=== PATIENT | male | born 1970 | race Hispanic/Latino ===

== ENCOUNTER 2024-11-20 21:52 | Emergency (ER) | payer SELFPAY ==
[~2024-11-20] VITALS: Ht 180.3 cm; Wt 101.2 kg
[~2024-11-20 21:52] MED LIST: LEVO500T2 PO; NAPR375T PO; PANT40SU PO
--- NOTE | 2024-11-20 21:56 | NUR ---
TRIAGE DELAYED. PT IN RESTROOM
--- NOTE | 2024-11-20 23:54 | NUR ---
REQUESTING BED FOR DUE TO HEADACHE, EXPLAINED ONCE ONE BECOMES AVAILABLE I WILL, PT VERBALIZED UNDERSTANDING
[2024-11-21 01:01] LABS: BASOPHILS # (AUTO) 0.05 K/uL (0.00-0.20); BASOPHILS % (AUTO) 0.6 % (0.0-5.0); EOSINOPHILS % (AUTO) 2.2 % (0.0-8.0); HEMATOCRIT 49.9 % (42-54); IMMATURE GRANULOCYTE ABSOLUTE 0.04 K/uL (0-1); LYMPHOCYTES # (AUTO) 3.1 K/uL (1.0-4.8); LYMPHOCYTES % (AUTO) 34.1 % (21.0-51.0); MEAN CORPUSCULAR HEMOGLOBIN 27.9 pg (27.0-33.0); MEAN CORPUSCULAR HGB CONC 34.7 g/dL (32.0-36.0); MEAN CORPUSCULAR VOLUME 80.6 fL (79-99); MONOCYTES # (AUTO) 0.7 K/uL (0.1-1.0); MONOCYTES % (AUTO) 7.4 % (3.0-13.0); NEUTROPHILS % (AUTO) 55.3 % (40.0-77.0); PLATELET COUNT (AUTO) 182 K/uL (130-400); RED BLOOD CELL COUNT(AUTO) 6.19 MIL/uL (4.50-6.20); RED CELL DISTRIBUTION WIDTH 13.6 % (11.0-15.5)
[2024-11-21 01:10] LABS: CREATININE 0.9 mg/dL (0.5-1.3); POTASSIUM 3.2 mmol/L (3.5-5.1)
[2024-11-21 01:15] LABS: ALBUMIN 3.9 g/dL (3.5-5.0); BILIRUBIN,TOTAL 1.1 mg/dL (0.2-1.0); TOTAL PROTEIN, SERUM 7.7 g/dL (6.0-8.3)
--- NOTE | 2024-11-21 01:41 | HMCIMG ---
CT HEAD/BRAIN W/O CONTRAST HISTORY: Headaches COMPARISON: None TECHNIQUE: Multiple sequential axial images of the head were obtained from the base of the skull through vertex. Patient was not given contrast through intravenous route. FINDINGS: The ventricles and extraventricular CSF spaces are dilated consistent with cerebral atrophy. Nonspecific white matter changes seen. There is no midline shift, mass effect or herniation. No acute intracranial bleed is seen. Visualized portion of the paranasal sinuses are grossly within normal limits. IMPRESSION: 1. No acute intracranial bleed is seen. 2. Atrophy with white matter changes. CT was performed with one or more following dose reduction techniques: automated exposure control, adjustment of the mA and kv according to patient's size, or use of a iterative reconstruction technique.
[2024-11-21] MEDS: DiphenhydrAMINE HCL 50 MG/ML VIAL IV ONE (01:54)
[2024-11-21] MEDS: PROCHLORPERAZINE 10MG/2ML INJ IV ONE (01:54)
[2024-11-21] MEDS: ketOROlac 15MG/ML VIAL (15MG/ML) IV ONE (01:54)
[2024-11-21] MEDS ORDERED: KETO10TA2 PO (02:00)
--- NOTE | 2024-11-21 02:03 | ERN ---
General Chief Complaint: Headache Stated Complaint: NECK PAIN Time Seen by MD: 00:32 Time Seen by Midlevel: 00:32 Source: patient History of Present Illness Initial Comments The patient is a 54-year-old male presenting to the emergency department with a right-sided headache. The headache has been persistent for the last four days. He does report similar episodes in the past over the last couple of months but has never seen a doctor for this. Denies having a history of migraines. He does report some mild photophobia but denies any focal weakness, nausea, vomiting, blurred vision, double vision, or any other symptoms at this time. Allergies: Coded Allergies: No Known Drug Allergies (Unverified Allergy, Unknown, 06/26/15) Home Meds Active Scripts Pantoprazole Sodium (Protonix) 40 Mg Granpkt.dr, 40 MG PO DAILY, #7 PACK Prov:MAGO CROWELL MD 06/28/15 Naproxen (Naprosyn) 375 Mg Tablet, 375 MG PO BID PRN for PAIN LEVEL 6 TO 10, #10 TAB Prov:MAGO CROWELL MD 06/28/15 Levofloxacin (Levaquin) 500 Mg Tablet, 500 MG PO DAILY, #7 TAB Prov:MAGO CROWELL MD 06/28/15 Past Medical History Past Medical History: No Pertinent History Past Surgical History: None ROS Dictation CONSTITUTIONAL: Negative except for HPI HEAD/FACE: Negative except for HPI EENT: Negative except for HPI RESPIRATORY: Negative except for HPI GASTROINTESTINAL/ABDOMINAL: Negative except for HPI GENITOURINARY: Negative except for HPI MUSCULOSKELETAL: Negative except for HPI INTEGUMENTARY: Negative except for HPI NEUROLOGICAL/PSYCH: Negative except for HPI HEMATOLOGIC/LYMPHATIC: Negative except for HPI All Systems Negative, Except as noted above. 13 point review of systems assessed and all negative except for above. Physical Exam Physical Exam Dictation Vital Signs reviewed General Appearance: Alert, oriented x 3, no acute distress, well developed, nourished. Head and Face: non-traumatic. Eyes: PERRL, pink conjunctivas, eyelid no trauma, anterior chamber with arcus senilis. Ears: Pinnas intact and no signs of trauma or erythema ear canals clear and no discharge TM no erythema Nose: No discharge, no bleeding. Oropharynx: Mouth normal, tongue pink, pharynx clear,no erythema, tonsils no exudates, no abscesses noted, mucous membrane moist Neck: Supple, non-tender, no thyromegaly, no masses, no JVD, no bruits Breast:Deferred Chest:No tenderness, no crepitus, no paradoxical movement, no retractions Lungs:Clear, well-ventilated, symmetric, no rales, no wheezing, no rhonchi, no stridor, good breath sounds bilaterally Heart: Regular rate, regular rhythm, no murmur, no gallops Vascular: no peripheral edema, Abdomen: Soft, positive bowel sounds, nondistended, no guarding, nontender, no rebound, no masses no hepatomegaly, no splenomegaly, no Vazquez's sign, no hernias. Rectal: Deferred Genital: Deferred Neurological: Normal speech, motor function intact, sensory function intact Musculoskeletal: Neck nontender, full range of motion, back nontender, full range of motion, Extremities: nontender, full range of motion Skin: Color pink, dry, no turgor, no rash, no lacerations, no abrasions, no contusions. Lymphatic: Deferred Results Laboratory and Microbiology Lab and Micro Result Laboratory Tests Test 11/21/24 00:48 White Blood Count 9.0 K/uL (4.8-10.8) Red Blood Count 6.19 MIL/uL (4.50-6.20) Hemoglobin 17.3 g/dL (14.0-18.0) Hematocrit 49.9 % (42-54) Mean Corpuscular Volume 80.6 fL (79-99) Mean Corpuscular Hemoglobin 27.9 pg (27.0-33.0) Mean Corpuscular Hemoglobin Concent 34.7 g/dL (32.0-36.0) Red Cell Distribution Width 13.6 % (11.0-15.5) Platelet Count 182 K/uL (130-400) Mean Platelet Volume 11.2 fL (7.5-10.5) H Immature Granulocyte % (Auto) 0.4 % (0-1) Neutrophils (%) (Auto) 55.3 % (40.0-77.0) Lymphocytes (%) (Auto) 34.1 % (21.0-51.0) Monocytes (%) (Auto) 7.4 % (3.0-13.0) Eosinophils (%) (Auto) 2.2 % (0.0-8.0) Basophils (%) (Auto) 0.6 % (0.0-5.0) Neutrophils # (Auto) 5.0 K/uL (1.8-7.7) Lymphocytes # (Auto) 3.1 K/uL (1.0-4.8) Monocytes # (Auto) 0.7 K/uL (0.1-1.0) Eosinophils # (Auto) 0.20 K/uL (0.00-0.70) Basophils # (Auto) 0.05 K/uL (0.00-0.20) Absolute Immature Granulocyte (auto 0.04 K/uL (0-1) Nucleated Red Blood Cells 0.0 % (0.0-0.19) Sodium Level 137 mmol/L (136-145) Potassium Level 3.2 mmol/L (3.5-5.1) L Chloride Level 100 mmol/L (101-111) L Carbon Dioxide Level 28 mmol/L (21-32) Blood Urea Nitrogen 12 mg/dL (7-18) Creatinine 0.9 mg/dL (0.5-1.3) Glomerular Filtration Rate Calc 103 mL/min (>90) Random Glucose 174 mg/dL (70-105) H Total Calcium 8.7 mg/dL (8.5-10.1) Labs Reviewed?: Yes MDM MDM: Differential diagnosis: Intracranial bleed, migraine headache, cluster headache There are no social concerns with this patient. Prescription drug management Prescriptions will include: Toradol Medical management and examination interpretation discussions were had by me with other qualified healthcare professionals as indicated for the patient's care. ED Course Orders Procedure Category Date Status Time 12 Lead Ekg Tracing- EKG 11/21/24 Logged Technical 00:42 Cbc With Differential LAB 11/21/24 Complete 00:42 Comprehensive LAB 11/21/24 In Process Metabolic Panel 00:42 Vital Signs Date Time Temp Pulse Resp B/P (MAP) Pulse Ox O2 Delivery O2 Flow Rate FiO2 11/20/24 21:55 98.4 105 20 165/119 97 Room Air [address] [place] [id number] IMAGING REPORT Signed PATIENT: BLANCO VÁZQUEZ MR#: [id number] : 1970 SEX: M AGE: 54 LOCATION: [facility] ORDER 1 STATUS: REG ER REPORT#: [id number] SERVICE 0 REASON: right sided headache ORDERING PHYSICIAN: JOSSELYN SAL PROCEDURE: HEAD WO - CT HEAD/BRAIN W/O CONTRAST CT HEAD/BRAIN W/O CONTRAST HISTORY: Headaches COMPARISON: None TECHNIQUE: Multiple sequential axial images of the head were obtained from the base of the skull through vertex. Patient was not given contrast through intravenous route. FINDINGS: The ventricles and extraventricular CSF spaces are dilated consistent with cerebral atrophy. Nonspecific white matter changes seen. There is no midline shift, mass effect or herniation. No acute intracranial bleed is seen. Visualized portion of the paranasal sinuses are grossly within normal limits. IMPRESSION: 1. No acute intracranial bleed is seen. 2. Atrophy with white matter changes. CT was performed with one or more following dose reduction techniques: automated exposure control, adjustment of the mA and kv according to patient's size, or use of a iterative reconstruction technique. DICTATED BY: LI ALBARADO MD DATE: 11/21/24137 ELECTRONICALLY SIGNED BY: LI ALBARADO MD DATE: 11/21/24140 DX & DISP Disposition: Discharge Departure Impression: Primary Impression: Migraine headache Condition: Stable Scripts Ketorolac Tromethamine (Ketorolac Tromethamine) 10 Mg Tablet 1 TAB PO TID for pain for 5 Days, #15 TAB 0 Refills Prov: JOSSELYN SAL 11/21/24 Additional Instructions: Blood work today is unremarkable. Your CT scan of the head does not show any acute intracranial bleed or any other acute intracranial abnormality. Your symptoms are consistent with what appears to be a migraine headache. I would like for you to follow up with the neurologist outpatient for further evaluation. Referrals: KEVIN TAPIA (PCP) DIDIER SEGURA MD Time of Disposition: 01:59 I have reviewed the case, and I agree with, Diagnosis and Plan I performed the substantive portion of the visit. I have reviewed and personally made and approve the management plan that is documented in the note by myself or the EVAN. I acknowledge for responsibility for the patient's management plan. JOSSELYN SAL Nov 21, 2024 02:03
[2024-11-21 02:05] VITALS: BP 165/98; PULSE 80; RESP 19; TEMP 98.5; O2SAT 96
--- NOTE | 2024-11-21 06:27 | EKG ---
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
== END 2024-11-21 02:08 | disposition home or self-care (01) ==
LOC: EDH 21:52
DX: G43.909 Migraine, unspecified, not intractable, without status migrainosus (principal); Z79.899 Other long term (current) drug therapy
CPT/HCPCS: 99285; 80053; 85025; 36415; 96374; 70450; 96375; 93005; J1885; J1200; J0780